=== PATIENT | female | born 1990 | race Caucasian/White ===

== ENCOUNTER 2018-01-18 12:48 | Observation (INO) | payer SELFPAY | END 2018-01-18 13:50 | disposition home or self-care (01) | PROVIDERS: Admitting Provider Family Medicine; Visit Provider Family Medicine | DX: Z34.93 Encounter for supervision of normal pregnancy, unspecified, third trimester (principal); Z3A.39 39 weeks gestation of pregnancy | CPT/HCPCS: 59025; G0378; G0379 ==

== ENCOUNTER 2018-01-20 04:11 | Inpatient (IN) | payer SELFPAY ==
--- NOTE | 2018-01-20 | DI.US.S_ITS ---
PROCEDURE: US RENAL COMPLETE INDICATIONS: BACK PAIN TECHNIQUE: Real-time scanning was performed of the kidneys and bladder, with image documentation. COMPARISON: None. FINDINGS: Kidneys: Kidneys are normal in size. Right kidney measures 10.9 cm long; left kidney measures 11.9 cm long. Right renal cortical thickness is 1.3 cm; left renal cortical thickness is 1.8 cm. Renal cortical echotexture is normal. 6 mm in diameter stone is noted in the proximal right ureter causing mild right-sided hydronephrosis. No suspicious solid mass lesions. Bladder: Urinary bladder was completely decompressed at time of imaging and cannot be evaluated. Miscellaneous: No free pelvic fluid. IMPRESSION: 6 mm proximal right ureteral stone causing mild right-sided hydronephrosis. Dictated by: Amy Tran MD, PhD on 01/20/2018 at 8:34 Approved by: Amy Tran MD, PhD on 01/20/2018 at 8:36
--- NOTE | 2018-01-20 | DI.US.S_ITS ---
PROCEDURE: US OB LIMITED INDICATIONS: BACK PAIN OUTSIDE/PRIOR DATING DATA: Last menstrual period (LMP): Not known. LMP-based estimated date of delivery (MELANIA): Not applicable. First dating scan (date and location): Not reported. Estimated date of delivery (MELANIA) from first dating scan: 01/23/18. TECHNIQUE: Real-time scanning was performed of the fetus, with image documentation. COMPARISON: None. FINDINGS: A single living intrauterine gestation is present. Presentation: Vertex Placenta: Placental position is superior right frontal, without previa. Amniotic fluid index: 12.8 cm, normal range is 5-24 cm. heart rate: 128 beats per minute. Estimated gestational age by report: 39 weeks 4 days. IMPRESSION: 1. Single living intrauterine with estimated gestational age by report of 39 weeks 4 days. 2. No evidence of placenta previa or placental abruption. Dictated by: Amy Tran MD, PhD on 01/20/2018 at 8:36 Approved by: Amy Tran MD, PhD on 01/20/2018 at 8:39
[2018-01-20 04:36] LABS: Bilirubin Urine UA NEGATIVE (NEGATIVE); Color Urine UA YELLOW; Glucose Urine UA NEGATIVE (Normal); Ketones Urine UA NEGATIVE (NEGATIVE); Leukocyte Esterase Urine UA 1+ (NEGATIVE); Nitrite Urine UA Negative (Negative); Occult Blood Urine UA 1+ (Negative); Protein Urine UA NEGATIVE (Negative); Urobilinogen Urine UA 0.2 E.U./dL (0.2)
[2018-01-20 04:41] LABS: Appearance Urine UA Slightly Cloudy
[2018-01-20 04:51] LABS: Bacteria Urine Many (>30); RBC Urine 1-5/HPF (0-5/HPF); Squamous Epithelial Cell Urine >30 /HPF; WBC Urine 1-5/HPF (0-5/HPF)
[2018-01-20 04:53] LABS: Culture Indicated Urine Cult Not Indicated
[2018-01-20 05:00] LABS: Add Manual Diff / Slide Review NO; Basophils Percent Auto 1.1 % (0-2); Eosinophils Percent Auto 0.8 % (2-4); Hematocrit 40.6 % (36-46); Hemoglobin 13.6 g/dL (12.0-16.0); Lymphocytes Percent Auto 36.5 % (25-40); Mean Corpuscular HGB Conc 33.4 % (30-36); Mean Corpuscular Hemoglobin 28.5 PG (26-34); Mean Corpuscular Volume 85.2 fL (80-100); Monocytes Percent Auto 4.6 % (3-14); Neutrophils Absolute Auto 8200 /uL (3000-5900); Platelet Count 293 X10^3/uL (150-400); Red Blood Cell Count 4.77 X10^6/uL (4.0-5.2); Red Cell Distribution Width 12.7 % (11.6-14.8); White Blood Cell Count 14.3 X10^3/uL (4.5-11.0)
[2018-01-20] MEDS: LACTATED RINGERS 1,000 ML 125 ML IV ×3 (05:21→21:11)
[2018-01-20] MEDS: OXYCODONE/ACETAMINOPHEN 5/325 TABLET 2 TAB PO ×2 (05:42→10:32)
[2018-01-20] MEDS: ONDANSETRON 4 MG/2 ML INJ IV ×3 (06:15→21:11)
[2018-01-20 06:45] LABS: Blood Urea Nitrogen 7 mg/dL (7-17); Carbon Dioxide 23 mmol/L (22-32); Chloride 105 mmol/L (98-107); Estimated Glomerular Filt Rate > 60.0 mL/min (>60); Glucose 91 mg/dL (70-100); HEMOLYSIS 32 (0-50); Sodium 137 mmol/L (137-145)
--- NOTE | 2018-01-20 08:49 | PM.OBHP.1 ---
OB HPI Date/Time Date of admission: 01/20/18 Date Patient Seen: 01/20/18 Time Patient Seen: 08:49 History of Present Condition Chief complaint: EVALUATION OF LABOR : 1 Para: 0 Estimated Date of Delivery: 01/23/18 Estimated Gestational Age (weeks): 39 5/7 Narrative: Noel Hoover is a 28 year old female with history of right-sided flank pain. Apparently recently seen here for hematuria and right-sided pain. Was felt to be secondary to possible early labor. Fetus is been good. No other significant changes. She has been having now leaking fluid or bleeding. Was having some contractions. Apparently yesterday she started having a little more right-sided flank pain which she thought maybe was just labor. Last night at 3:00 a.m. woke up with severe pain and was brought to the emergency room and labor and delivery. She was having some contractions. Her cervix is 2 cm. With no other significant change heart monitor was reactive category 1. No evidence of any leaking fluid. She otherwise was hemodynamically stable. Patient was given an ultrasound which showed a right-sided 7 mm kidney stone. She was given Percocet she did have 1 episode of vomiting but actually otherwise has been feeling quite a bit better since the pain medicine. Having intermittent contractions nothing significant. Apparently she is visiting friends lives in [place]. Did bring her records with her. No other significant change. labs show she is GBS negative. She had early care dates were from a 9 week ultrasound. Confirmed with an 18 week ultrasound. Genetic screening was negative. She has had an unremarkable otherwise. She believes she is O-positive or cheese and she is B-positive rubella immune SDS negative HIV nonreactive. G decisional screen was negative on the 20 of November. Hepatitis-C was negative hepatitis-B was negative no other significant changes. Patient has otherwise no major medical history. Medicine is vitamins and iron. She had been on iron for the start of the . Otherwise healthy. No major medical history. Family history is unremarkable. Allergies none. History of Present care: good care Dating criteria: LMP confirmed by 1st trimester US Ultrasounds: normal 1st trimester US and normal mid trimester US Medical complications: none Preadmission Labs Blood type: B (+) positive Prior (ies) History: None Evaluation Evaluation Laboratory results: Laboratory Tests 0901/20/18 01/20/18 04:20 04:40 06:20 WBC 14.3 H RBC 4.77 Hgb 13.6 Hct 40.6 MCV 85.2 MCH 28.5 MCHC 33.4 RDW 12.7 Plt Count 293 Neut % (Auto) 57.0 Lymph % (Auto) 36.5 Brooks % (Auto) 4.6 Eos % (Auto) 0.8 L Baso % (Auto) 1.1 Neut # (Auto) 8200 H Sodium 137 Potassium 4.0 Chloride 105 Carbon Dioxide 23 BUN 7 Creatinine 0.50 L Estimated GFR > 60.0 BUN/Creatinine Ratio 14.0 Glucose 91 Calcium 9.0 Urine Color Yellow Urine Appearance Slightly cloudy Urine pH 6.0 Ur Specific Mcfarlan 1.020 Urine Protein Negative Urine Glucose (UA) Negative Urine Ketones Negative Urine Occult Blood 1+ H Urine Nitrate Negative Urine Bilirubin Negative Urine Urobilinogen 0.2 Ur Leukocyte Esterase 1+ H Urine RBC 1-5/hpf Urine WBC 1-5/hpf Ur Squamous Epith Cells >30 /hpf H Urine Bacteria Many (>30) H Ur Culture Indicated? Cult not indicated Micro UA Comment * Meds Allergies Allergy/AdvReac Type Severity Reaction Status Date / Time No Known Drug Allergies Allergy Verified 01/20/18 05:28 Review of Systems Review of Systems All systems reviewed & are unremarkable except as noted in HPI and below Exam Narrative Exam Narrative: Alert gravid female in no acute distress resting comfortably. Lungs are clear. Heart regular rate and rhythm. Abdomen is soft positive bowel sounds gravid vertex by Marquis's. She does have some mild diffuse tenderness but nothing significant. No rebound guarding or other change. Flank shows tenderness on the right side. No left-sided tenderness. Extremities without cyanosis clubbing edema. Cervix is 2/70%/vertex/-1/intact Objective Labs Result Diagrams: 01/20/18 04:40 01/20/18 06:20 Labs: Laboratory Results - last 24 hr 01/20/18 01/20/18 01/20/18 04:20 04:40 06:20 WBC 14.3 H RBC 4.77 Hgb 13.6 Hct 40.6 MCV 85.2 MCH 28.5 MCHC 33.4 RDW 12.7 Plt Count 293 Neut % (Auto) 57.0 Lymph % (Auto) 36.5 Brooks % (Auto) 4.6 Eos % (Auto) 0.8 L Baso % (Auto) 1.1 Neut # (Auto) 8200 H Sodium 137 Potassium 4.0 Chloride 105 Carbon Dioxide 23 BUN 7 Creatinine 0.50 L Estimated GFR > 60.0 BUN/Creatinine Ratio 14.0 Glucose 91 Calcium 9.0 Urine Color Yellow Urine Appearance Slightly cloudy Urine pH 6.0 Ur Specific Mcfarlan 1.020 Urine Protein Negative Urine Glucose (UA) Negative Urine Ketones Negative Urine Occult Blood 1+ H Urine Nitrate Negative Urine Bilirubin Negative Urine Urobilinogen 0.2 Ur Leukocyte Esterase 1+ H Urine RBC 1-5/hpf Urine WBC 1-5/hpf Ur Squamous Epith Cells >30 /hpf H Urine Bacteria Many (>30) H Ur Culture Indicated? Cult not indicated Micro UA Comment * Assessment and Plan Plan: Plan: Problem 1. Thirty-nine and 5 since week intrauterine . heart monitor was reactive. She is having occasional contractions and probably has early stages of labor. We will have to see how things go over the next 2 hr. If she makes change then will prepare for vaginal delivery. If she does not we will send home and consider referral to her regular doctor. My recommendation is that if we do let him go home we should she should go straight home to [place]. I do not think she is probably in active labor but will see how things go. Problem 2. Kidney stone. Patient actually is well controlled with pain. Will need to be followed. We do not have a urologist here so things do not pass and she has increasing pain will need to refer to [place]. We discussed that it would be best if she goes home with her regular doctor and I assume they have urologist there. They feel like they do. She understands questions answered. Discussed with pharmacist. Is category B. She is really comfortable right now I think we are okay but may need to give Flomax depending on how things go. Discussed both with and her. They understand. Questions answered.
[2018-01-20 12:33] VITALS: BP 120/61
[2018-01-20] MEDS: MEPERIDINE 50 MG/ML 25 MG IV ×3 (12:51→18:30)
[2018-01-20] MEDS: OXYTOCIN PREMIX 30 UNIT/500 ML PLAST..BAG IV (13:10)
--- NOTE | 2018-01-20 13:26 | PM.OBPNLAB ---
Date/Time Date Patient Seen: 01/20/18 Time Patient Seen: 13:27 Pain Control Pain control: narcotic analgesia Comments: Patient with continued significant right-sided pain. Given Demerol and seemed to help quite a bit. No real contraction pain. Contractions Contraction pattern: Absent Status Monitor Accelerations: Present Monitor Decelerations: Absent Monitor Variability: Moderate Comments: Category 1 Assessment and Plan Assessment: induction ongoing Comments: Discussed with patient and . We discussed transfer to hospital with urologist. I discussed with anesthesia that epidural should cover her ureter pain also. We went through their questions about C-sections with tied recommend not doing at this time. Certainly heart monitor looks great and we have not tried if we could control her pain with an epidural and I think that would be okay although were not assured that kidney stone pain will be gone. We discussed all of this. Questions were answered. After discussion we elected for induction. I have discussed this with OBGYN who feels like that would be the best approach. Induction discussed. Questions answered. We will see about rupture and half an hour. No other changes. We will follow from here. Recheck and 0.5 hr.
--- NOTE | 2018-01-20 18:22 | PM.OBPNLAB ---
Date/Time Date Patient Seen: 01/20/18 Time Patient Seen: 18:22 Pain Control Pain control: tolerating well and narcotic analgesia Comments: Back pain seems controlled. Pelvic Exam Dilation (cm): 2 Effacement (%): 80 station: -1 Amniotic membrane status: Ruptured Comments: Ruptured with clear fluid Contractions Pitocin rate (mU/min): 9 Contraction pattern: Irregular Status status: Category l Assessment and Plan Assessment: induction ongoing Plan: continuous present management Comments: Problem 1. 395/7 week intrauterine ruptured with inadequate contraction pattern. Will continue Pitocin. Follow closely. Epidural when needed Problem 2. Kidney stone right side. Actually seems to be doing pretty well Demerol. Certainly will stop 4 cm due to risk and hope epidural well control pain. Will follow closely but seems to be doing well. Hopefully will pass it and not be an issue. Otherwise will need Urology outpatient evaluation
--- NOTE | 2018-01-21 02:23 | PM.OBPNLAB ---
Date/Time Date Patient Seen: 01/21/18 Time Patient Seen: 02:23 Pain Control Comments: Epidurals been turned down. Having pain was most contractions. Pelvic Exam Dilation (cm): 10 Effacement (%): 100 station: +1 Contractions Contractions on admission: regular Contraction pattern: Regular Contraction intensity: Moderate Status status: Category l Assessment and Plan Comments: Problem 1. Intrauterine . Complete. Pain control is not adequate will get epidural adjusted. Continue pushing. Patient fatigued but adequately pushing will continue. Prepare for vaginal delivery. Problem 2. Kidney stone. Seems to be stable at this time. Patient tolerating pain. Hopefully epidural will help. Toradol as
--- NOTE | 2018-01-21 04:59 | PM.OBPNLAB ---
Date/Time Date Patient Seen: 01/21/18 Time Patient Seen: 04:59 Pain Control Pain control: epidural Comments: Pain overall well controlled. No other changes. Pelvic Exam Dilation (cm): 10 Effacement (%): 100 station: +1 Amniotic membrane status: Ruptured Contractions Pitocin rate (mU/min): 0 Contraction pattern: Regular Contraction intensity: Moderate Status status: Category l Assessment and Plan Assessment: active labor Plan: continuous present management Comments: Post 2 and 0.5 hr. Vac applied x3 without improvement. Dr. Richardson came attempted forceps without success. Will convert urgent section. Infant has looked well. No distress or other changes. Discussed with family. Questions answered.
[2018-01-21] MEDS: CEFOTETAN 2 GM/50 ML PIGGYBACK IV (05:57)
--- NOTE | 2018-01-21 06:13 | SUR.OPER ---
Supine on Padded OR bed, head on pillow, safety belt at thigh, arms secured on padded arm boards at <90 degrees abduction. Bump under right buttock. Legs uncrossed with pillow under knees, gel pad to heels, tape over blanket to lower legs.
[2018-01-21] MEDS: LACTATED RINGERS 1,000 ML 125 ML IV (06:44)
[2018-01-21] MEDS: LIDOCAINE 1% 30 ML INJ INJ (06:56)
[2018-01-21 07:22] VITALS: BP 116/84; PULSE 107; RESP 18; TEMP 36.9; O2SAT 98
--- NOTE | 2018-01-21 07:27 | SUR.OPER ---
TOB live male at 0627. Cord blood x 2 and placenta to L&D with baby/OB Rn.
--- NOTE | 2018-01-21 07:28 | PM.OP.1 ---
Operative Date/Time/Diagnoses Date of procedure: 01/21/18 Time of procedure: 07:28 Pre-op diagnosis: 3957 week intrauterine with history of kidney stone with you to progress 2nd stage Post-op diagnosis: same Procedure & Clinicians Procedure: Primary low-transverse section Same procedure as scheduled: Yes Surgeon: Buddy Delaney Construction Area Manager: Randi Macias Anesthesia Type: Epidural Operative Notes Findings: Viable male weighing 8 lb 3 oz Apgars 8 and 9. Patient was occiput posterior and wedged pretty tightly in the pelvis. Normal pelvic organs. Closure Type: primary Specimen(s): none sent Implants & Drains: None Applied: catheter Estimated Blood Loss (mL): 400 Blood products transfused: none Procedure in detail: Patient was taken to the operative theater after consent was signed in epidural was dosed. She was placed on the supine wedge position and epidural was re-dosed with excellent results. Patient was prepped and draped in the usual manner Daugherty was already placed. Pfannenstiel incision was made with sharp dissection down to the muscle layer. Midline of the fascia was incised. Blunt dissection was used to extend the wound through the subcutaneous tissue. Scalpel was used to extend the fascia incision bilaterally. Copious were then used to elevate and blunt dissection was used to the elevate the superior aspect of the fascia midline was cut with curved mayos. This was repeated inferiorly without complications. Midline muscle layer was then bluntly entered until peritoneum was identified. Bluntly entered peritoneum under direct visualization and then extended bluntly will until adequate exposure. Bladder blade was placed. Bladder flap was then cut and bluntly developed and a bladder blade was placed and the bladder flap. A low transverse incision was then made on the uterus versus cord and then slowly until clear fluid was noted. It was extended bluntly. Child had been previously attempted to be pushed up out of the pelvis my fingers prior to procedure starting still was wedged pretty tightly below. She child shoulders were grasped and baby was pushed upward on as much as we can get. And then we elevated the head without complications. Child was occiput posterior. Child and delivered easily. Cord was clamped he was crying handed off to nursery. No resuscitation was required. Placenta was then delivered manually without complications uterine contents were then swept with a dry lap sponge. Uterine incision was then grasped corners with ring forceps along with inferior aspect of the uterine incision. There was a small tear vertically toward the vagina which was repaired with running 0 chromic locked. No evidence of bleeding. A 2nd imbricating 0 chromic suture was then done without complications on locked irrigation was done no bleeding was noted bladder flap was closed with running 3 0 Vicryl. Peritoneum was closed with running 2 0 Vicryl. Three 3 0 Vicryl interrupted sutures were used to approximate the muscle layer. Fascia was closed with running 1 Vicryl. 330 Vicryl interrupted sutures were used to close the subcutaneous tissue after irrigation. Incision was closed with running 4.0 Vicryl. Steri-Strips usual dressing was applied. All sponge and instrument and needle counts were correct. Complications: none Condition: stable Disposition: PACU
[2018-01-21 07:30] VITALS: BP 120/89; PULSE 101; RESP 17; O2SAT 98
[2018-01-21 07:35] VITALS: BP 116/84; PULSE 107; RESP 14; TEMP 36.9; O2SAT 100
[2018-01-21 07:41] VITALS: BP 130/78; PULSE 110; RESP 17; TEMP 37.1; O2SAT 97
[2018-01-21 07:50] VITALS: BP 118/76; PULSE 115; RESP 20; O2SAT 97
--- NOTE | 2018-01-21 07:52 | SUR.PHASEI ---
reports called to L&D, RN asked to hold patient for 10 minutes. Patient alert and oriented, reports 05/27. Shaky throughout but able to rest. Patient denies need for demerol, warm blanket or pain medications at this time. Vital signs stable, however remains ST 105-110. Anesthesia aware.
[2018-01-21] MEDS: DEXTROSE 5%-LACTATED RINGERS 1,000 ML 125 ML IV ×2 (08:20→17:09)
[2018-01-21] MEDS: ONDANSETRON 4 MG/2 ML INJ IV ×2 (09:28→13:04)
[2018-01-21] MEDS: KETOROLAC 30 MG/ML VIAL IV ×2 (12:59→19:15)
--- NOTE | 2018-01-21 18:16 | PM.PN.1 ---
Subjective Date Patient Seen: 01/21/18 Time Patient Seen: 18:16 Interval history: Feeling well. Pain is well controlled. No significant back pain. No bleeding no other change. Exam Vital Signs (past 8 hours): Oxygen Delivery Method Room Air Narrative Exam Narrative: Alert female no acute distress Objective Labs Result Diagrams: 01/20/18 04:40 01/20/18 06:20 Assessment & Plan Plan: Assessment/Plan Narrative: Status post for failure to progress actually doing quite well. She has been up moving around she will have her Daugherty pulled later and pain seems to be well controlled. Minimal bleeding. Routine care. Follow up a.m.. Kidney stone right side. Appears to be actually doing pretty well. I am going to hold on Flomax. Toradol seems to be covering is going to be hard to tell exactly with blood in her urine from surgery. We will have to see how things go if things worsen will need CT scan. They understand questions answered
[2018-01-22 01:59] VITALS: TEMP 37
[2018-01-22] MEDS: KETOROLAC 30 MG/ML VIAL IV ×3 (01:59→14:15)
--- NOTE | 2018-01-22 08:26 | PM.OBPN.1 ---
Subjective - OB Interval history: Mom is doing well . She is starting to have some pain left incisional. Her Duramorph is wearing off. She is only using Toradol for pain at this time. She is tolerating p.o. without difficulty. Her vaginal bleeding has decreased. Her catheter is out and she is urinating. She is passing flatus. She is not having any nausea or vomiting. is going very well. Baby is doing very well. Patient comments: pain well controlled [place] baby status: doing well [place] feeding status: exclusively breast feeding Date Patient Seen: 01/22/18 Time Patient Seen: 08:27 Exam Vital Signs (past 8 hours): - 01/22/18 01:59 Temperature 98.6 F Oxygen Delivery Method Room Air Narrative Exam Narrative: Afebrile, vital signs are stable Neck is supple Chest: Clear to auscultation Cor: Regular rate and rhythm without murmur Abdomen: Uterus is below the umbilicus and firm. Some incisional tenderness. Bandage in place and dry Extremities show trace ankle and pedal edema Objective Labs Result Diagrams: 01/20/18 04:40 01/20/18 06:20 Assessment & Plan Plan day: 2 plan OB: routine postop care Comments: Mom is doing well. Sacral dimple on baby but mom's MS AFP was negative. Routine care. Time Spent With Patient Total time spent is greater than 50% in coordination of care (as documented) at patient's floor/unit and/or counseling patient: 25 - 35 minutes
[2018-01-22] MEDS: DOCUSATE 250 MG CAPSULE PO (08:28)
--- NOTE | 2018-01-22 08:29 | P.PNOB_ITS ---
Subjective - OB Interval history: Mom is doing well . She is starting to have some pain left incisional. Her Duramorph is wearing off. She is only using Toradol for pain at this time. She is tolerating p.o. without difficulty. Her vaginal bleeding has decreased. Her catheter is out and she is urinating. She is passing flatus. She is not having any nausea or vomiting. is going very well. Baby is doing very well. Patient comments: pain well controlled Story baby status: doing well Story feeding status: exclusively breast feeding Date Patient Seen: 01/22/18 Time Patient Seen: 08:27 Exam Vital Signs (past 8 hours): - 01/22/18 01:59 Temperature 98.6 F Oxygen Delivery Method Room Air Narrative Exam Narrative: Afebrile, vital signs are stable Neck is supple Chest: Clear to auscultation Cor: Regular rate and rhythm without murmur Abdomen: Uterus is below the umbilicus and firm. Some incisional tenderness. Bandage in place and dry Extremities show trace ankle and pedal edema Objective Labs Result Diagrams: 01/20/18 04:40 01/20/18 06:20 Assessment & Plan Plan day: 2 plan OB: routine postop care Comments: Mom is doing well. Sacral dimple on baby but mom's MS AFP was negative. Routine care. Time Spent With Patient Total time spent is greater than 50% in coordination of care (as documented) at patient's floor/unit and/or counseling patient: 25 - 35 minutes
[2018-01-22] MEDS: OXYCODONE/ACETAMINOPHEN 5/325 TABLET 2 TAB PO ×4 (09:18→22:18)
[2018-01-22 09:25] LABS: Add Manual Diff / Slide Review NO; Basophils Percent Auto 4.4 % (0-2); Eosinophils Percent Auto 0.5 % (2-4); Hematocrit 32.9 % (36-46); Hemoglobin 11.2 g/dL (12.0-16.0); Mean Corpuscular HGB Conc 33.9 % (30-36); Mean Corpuscular Hemoglobin 28.8 PG (26-34); Monocytes Percent Auto 5.9 % (3-14); Neutrophils Absolute Auto 12700 /uL (3000-5900); Neutrophils Percent Auto 69.2 % (50-75); Platelet Count 206 X10^3/uL (150-400); Red Blood Cell Count 3.88 X10^6/uL (4.0-5.2); Red Cell Distribution Width 13.1 % (11.6-14.8); White Blood Cell Count 18.3 X10^3/uL (4.5-11.0)
[2018-01-22] MEDS: LANOLIN OINT 7 GM 1 APPLIC TOP (14:16)
[2018-01-22] MEDS: IBUPROFEN 600 MG TABLET PO (20:31)
[2018-01-23] MEDS: IBUPROFEN 600 MG TABLET PO ×2 (02:39→10:33)
[2018-01-23] MEDS: OXYCODONE/ACETAMINOPHEN 5/325 TABLET 2 TAB PO ×3 (02:40→10:31)
[2018-01-23 09:13] VITALS: BP 84/48; PULSE 88; RESP 20; TEMP 36.3
--- NOTE | 2018-01-23 10:26 | P.DS_ITS ---
History of Present Illness Chief complaint: labor & delivery Discharge Providers Date of admission: 01/20/18 04:11 Consults: 01/21/18 08:11 Consult to Hepatology Physician Routine Comment: Discharge provider: Ariel Murillo MD Discharge Date: 01/23/18 Summary Discharge Diagnosis: Term in active labor Failed labor section Kidney stone Hospital Course: Patient had been followed locally for care uneventful as far as I know. Lives in [facility] that shows to have care delivery year. See operative note for discussion of labor and delivery details. Postoperatively she has done well some pain but well managed with oral medications has chosen the nurse that has been a little bit full been managing okay. Also was found with a kidney stone that may be causing some back pain, not clear given the potential of back pain just with labor. Some pain at this time but on the other side of the back more so my sense is this is probably more related to recent delivery that a migrating stone. Has been up and around feeling pretty well no particular concerns. Some foot swelling. Exam Vital Signs (past 8 hours): Oxygen Delivery Method Room Air Narrative Exam Narrative: Healthy appearing no acute distress, up with baby. HEENT unremarkable chest is clear heart has a regular rate and rhythm without murmur abdomen is soft somewhat tender fundus just below the umbilicus dressing is in place no obvious saturation extremities with trace edema, normal reflexes. Objective Labs Result Diagrams: 01/22/18 Unknown 01/20/18 06:20 Discharge Plan Discharge Plan Patient Disposition: Home Discharge comment: To have postop care at their home and [facility]. Home with oral narcotics advised continued vitamins while nursing, and provided tamsulosin to use as needed should there be further evidence of kidney stone passage. Discharge Med Rec/Prescriptions Prescriptions: New oxycodone-acetaminophen 5-325 mg Tablet 2 tab PO Q4HR PRN (Reason: Pain, Moderate (4-6)) Qty: 30 RF: 0 tamsulosin 0.4 mg capsule 0.4 mg PO DAILY PRN (Reason: As needed for kidney stone) Qty: 14 RF: 0 Provider Discharge Instructions Diet: Diet as Tolerated Activity: As tolerated Skin/Wound/Dressing Care Report to your healthcare provider any signs of infection, such as:: chills, fever, night sweats, increased pain and unusual drainage Dressing: Change dressing daily Discharge Data Attending Provider: Buddy Delaney Admit Date/Time: 01/20/18 04:11
[2018-01-23] MEDS: DOCUSATE 250 MG CAPSULE PO (10:33)
== END 2018-01-23 12:25 | disposition home or self-care (01) | DRG 766 ==
PROVIDERS: Admitting Provider Family Medicine; Visit Provider Family Medicine
PROC: 10D00Z1 Extraction of Products of Conception, Low, Open Approach (ICD-10-PCS; CPT 59514; principal; 2018-01-21 06:00)
DX: O75.89 Other specified complications of labor and delivery (principal); Z3A.39 39 weeks gestation of pregnancy; Z37.0 Single live birth; N20.0 Calculus of kidney; O64.0XX0 Obstructed labor due to incomplete rotation of fetal head, not applicable or unspecified; O62.1 Secondary uterine inertia
CPT/HCPCS: 01967; 01968; 36415; 59050; 76770; 76815; 80048; 81001; 85025; 86850; 86900; 86901; G0379; J1885; J2175; J2274; J2405; J2590; J2765; J7121

== ENCOUNTER → 2021-08-20 15:38 | Outpatient (CLI) | payer SELFPAY ==
[2021-08-20 19:24] LABS: Urine N gonorrhoeae NOT DETECTED
[2021-08-20 19:40] LABS: Urine Chlamydia NOT DETECTED
== END ==
PROVIDERS: Visit Provider Obstetrics & Gynecology
DX: Z34.83 Encounter for supervision of other normal pregnancy, third trimester (principal); Z3A.38 38 weeks gestation of pregnancy
CPT/HCPCS: 87491; 87591

== ENCOUNTER → 2021-08-22 09:11 | Outpatient (CLI) | payer SELFPAY ==
[2021-08-22 11:06] LABS: COVID19 -Nasal RAPID Negative (Negative)
== END ==
PROVIDERS: Referring Provider Obstetrics & Gynecology; Visit Provider Obstetrics & Gynecology
DX: Z01.812 Encounter for preprocedural laboratory examination (principal); Z20.822 Contact with and (suspected) exposure to COVID-19
CPT/HCPCS: 87635

== ENCOUNTER 2021-08-23 05:46 | Inpatient (IN) | payer SELFPAY ==
--- NOTE | 2021-08-22 16:33 | PM.OBHP.1 ---
OB HPI Date/Time Date of admission: 08/23/21 Date Patient Seen: 08/23/21 History of Present Condition Chief complaint: REPEAT Narrative: Noel Merida is a 31 year old female [facility] Social History (System 08/22/21 @ 07:10 by Lady Chelsea Pryor) marital status: Smoking Status: Never smoker Meds Home Medications and Allergies Home Medications Medication Instructions Recorded Confirmed Type oxycodone-acetaminophen 5 mg-325 2 tab PO Q4HR PRN #30 tab 01/23/18 Rx mg tablet tamsulosin 0.4 mg capsule 0.4 mg PO DAILY PRN #14 cap 01/23/18 Rx Allergies Allergy/AdvReac Type Severity Reaction Status Date / Time No Known Drug Allergies Allergy Verified 08/22/21 07:10
[2021-08-23 06:33] LABS: Add Manual Diff / Slide Review NO; Basophils Absolute Auto 100 /uL (0-100); Basophils Percent Auto 0.6 % (0-2); Eosinophils Absolute Auto 100 /uL (0-450); Hemoglobin 13.1 g/dL (12.0-16.0); Lymphocytes Absolute Auto 3600 /uL (1100-4500); Lymphocytes Percent Auto 32.8 % (25-40); Mean Corpuscular HGB Conc 34.4 % (30-36); Mean Corpuscular Volume 84.4 fL (80-100); Monocytes Absolute Auto 600 /uL (0-900); Monocytes Percent Auto 5.6 % (3-14); Neutrophils Absolute Auto 6600 /uL (1500-7000); Platelet Count 288 X10^3/uL (150-400); Red Cell Distribution Width 12.5 % (11.6-14.8)
[2021-08-23] MEDS: LACTATED RINGERS 1,000 ML 100 ML IV ×2 (06:42→08:14)
[2021-08-23 06:59] VITALS: BP 131/76
--- NOTE | 2021-08-23 07:32 | PM.OBHP.1 ---
OB HPI Date/Time Date of admission: 08/23/21 Date Patient Seen: 08/23/21 Time Patient Seen: 07:32 History of Present Condition Chief complaint: REPEAT : 4 Para: 1 Estimated Date of Delivery: 08/27/21 Estimated Gestational Age (weeks): 39+3 Narrative: oNel Merida is a 31 year old , MELANIA 08/27/2021 admitted now at 39+ 3 weeks gestational age for repeat section. Patient received her care in [facility] and records accompany the patient at her initial visit on 08/21/2021. Patient's course has been uneventful, her GBS is negative, and her MELANIA is well established by first-trimester ultrasound and her LMP. Indications Operative indications ( section): previous uterine surgery History of Present care: good care Dating criteria: LMP confirmed by 1st trimester US Ultrasounds: normal 1st trimester US and normal mid trimester US Obstetrical complications: none Medical complications: none Preadmission Labs Blood type: B (+) positive -: Antibody screen: negative, GBS status: negative, HBsAG: negative and RPR/VDLR: negative -: Chlamydia screen: not detected and Gonorrhea screen: not detected -: Rubella: immune and Varicella: immune HCT: 39 HCAB: negative PAP: Normal Sequential screen: Negative Cell-free DNA: Negative, male infant Narrative: 1 hr. GDM screen negative Prior (ies) History: SAB x 2; Primary at [facility] 2018 Evaluation Evaluation Baseline heart rate: 150 Variability: Average (6-10) monitor accelerations: Present Monitor Decelerations: Absent Status: Category l [facility] Social History (System 08/22/21 @ 07:10 by Lady Chelsea Pryor) marital status: Smoking Status: Never smoker Meds Home Medications and Allergies Home Medications Medication Instructions Recorded Confirmed Type oxycodone-acetaminophen 5 mg-325 2 tab PO Q4HR PRN #30 tab 01/23/18 Rx mg tablet tamsulosin 0.4 mg capsule 0.4 mg PO DAILY PRN #14 cap 01/23/18 Rx Allergies Allergy/AdvReac Type Severity Reaction Status Date / Time phenol [From Chloraseptic] AdvReac Severe Blister Verified 08/23/21 07:45 OB Exam [facility] Head: normal to inspection, normocephalic and atraumatic Eyes General: appearance normal, both eyes and all related structures Resp Effort & Inspection: normal respiratory effort and able to speak in complete sentences Auscultation: clear to auscultation bilaterally Cardio Rate: regular rate Rhythm: regular rhythm Heart Sounds: S1 normal, S2 normal and no murmurs Extremities Lower extremity: Yes normal to inspection GI Inspection: incision (Well-healed Pfannenstiel incision) Palpation: Yes soft and Yes no hepatosplenomegaly External Female Exam: Yes other (Deferred) Uterus Location (Fundal Height): 38 Presentation: vertex Estimated Weight (lbs): 8 Objective Labs Result Diagrams: 08/23/21 06:15 Labs: Laboratory Results - last 24 hr 08/23/21 08/23/21 06:15 06:15 WBC 11.0 RBC 4.50 Hgb 13.1 Hct 38.0 MCV 84.4 MCH 29.0 MCHC 34.4 RDW 12.5 Plt Count 288 Neut % (Auto) 60.0 Lymph % (Auto) 32.8 [place] % (Auto) 5.6 Eos % (Auto) 1.0 L Baso % (Auto) 0.6 Neut # (Auto) 6600 Lymph # (Auto) 3600 [place] # (Auto) 600 Eos # (Auto) 100 Baso # (Auto) 100 Blood Type B Positive Antibody Screen Negative Assessment and Plan Assessment and Plan Assessment and Plan narrative: ASSESSMENT 1. INTRAUTERINE GESTATION, 39+ 3 WEEKS GESTATIONAL AGE, PRIOR SECTION PLAN 1. ADMITTED FOR REPEAT SECTION 2. SEE ORDERS
--- NOTE | 2021-08-23 07:55 | PM.PREOP ---
Pre-operative Note COVID-19 COVID-19 status: Negative Result date/Date tested (Pos, Neg/Pending): 08/23/21 Criteria for continued procedure: Non-surgical alternatives not available or appropriate per current SOC Interval Note History & Physical reviewed/Exam performed by Physician: Yes Changes to H&P: No
[2021-08-23] MEDS: CEFAZOLIN 2 GM/20 ML SYRINGE IV (08:00)
--- NOTE | 2021-08-23 08:18 | SUR.OPER ---
Patient reports previous reaction to skin prep from performed 01/21/2018. Dr. Leonard, anesthesia provider, reviewed operative notes from anesthesiologist and track watchman from first noting that chloraprep was used on both patient's back and abdomen. Chloraprep added to allergy list by Dr. Leonard. Dr. Nguyen notified. Betadine paint used for skin prep.
--- NOTE | 2021-08-23 08:32 | SUR.OPER ---
Viable baby boy delivered at 0823. Placenta delivered. Cord blood tubes x 2 and placenta given to L&D RN.
[2021-08-23 09:24] VITALS: BP 139/91; PULSE 88; RESP 16; TEMP 36.6; O2SAT 98
--- NOTE | 2021-08-23 09:26 | P.OP_ITS ---
Operative Date/Time/Diagnoses Date of procedure: 08/23/21 Time of procedure: 08:00 Pre-op diagnosis: Intrauterine gestation, Freire, vertex, 39+ 3 weeks gestational age Previous section Post-op diagnosis: same Procedure & Clinicians Procedure: Repeat section, ( transverse cervical) Same procedure as scheduled: Yes Surgeon: Esteban Nguyen Print Machine Operator: Chaparrita Acosta Reason for Print Machine Operator: Retraction, and the safe, timely, affective completion of this complex procedure. Anesthesia Type: Spinal Operative Notes Findings: Viable male infant, Apgars 8/9, BW 3789 gms. (8# 5.7 oz.), delivered without difficulty from the vertex presentation. Normal gravid anatomy Closure Type: primary Specimen(s): cord blood Intraoperative meds administered: Ketorolac and Pitocin Applied: Catheter Estimated Blood Loss (mL): 500 Blood products transfused: none Procedure in detail: With the patient under satisfactory spinal block anesthesia in the dorsal supine position, the abdomen was prepped and draped in the usual fashion for section following insertion of a Daugherty catheter.? A pre-surgical safety time-out was then taken in accordance with [facility] Main OR protocols.? A 14 cm transverse incision was then made and carried down to the deep fascia.? The deep fascia was incised transversely, the rectus abdomini bluntly, and the peritoneum was entered sharply.? A bladder flap was created with a transverse incision of the peritoneum overlying the lower uterine segment and the bladder advanced.? The lower uterine segment was then incised transversely and the amni otic cavity entered atraumatically.? Clear amniotic fluid was noted and the infant was delivered from vertex presentation without difficulty.? A shoulder cord was noted at the time of delivery and reduced following delivery of the infant.? Delayed cord clamping was performed and once the umbilical cord was clamped and cut, cord blood sample was obtained for routine studies.? The placenta was then removed from the endometrial cavity with uterine massage and gentle traction on the umbilical cord.? The endometrial cavity was found to be empty with use of a sloppy wet lap followed by dry lap.? All redundant membranes were removed and the endocervical canal dilated with a ring forcep.? Ring forceps were used to secure both angles and the hysterotomy was closed 1st with #1 Chromic in a running interlocking stitch initiated both angles and tying separately near the midline.? A 2nd layer of #1 Chromic was used in a running interlocking imbricating stitch to over sew the 1st.? 2 additional [id number] stitches of #1 Chromic were required to achieve complete hemostasis along the hysterotomy line. Following placement of those sutures, hemostasis was excellent with no points of bleeding noted in the pelvis.? The bladder flap was then closed with 2-0 Vicryl and the anterior peritoneum was closed in a similar fashion.? The rectus a dominant I were reapproximated with 3 #1 Chromic interrupteds. The deep fascia was then closed with #1 Vicryl in a running stitch initiated at both angles inciting separately near the midline.? Subcutaneous tissues brought together was 2-0 Vicryl in a running stitch and skin edges were reapproximated with 4-0 Monocryl in a running imbricating stitch.? Mastisol was applied to the skin and Steri-Strips then applied.? An AquaCel dressing was then applied over the Steri-Strips and the procedure was terminated with the doing well and the mother having tolerated the procedure well. Complications: none Post-operative Condition: stable Disposition: PACU Aftercare: routine postop
[2021-08-23 09:29] VITALS: BP 139/84; PULSE 84; RESP 18; O2SAT 95
[2021-08-23 09:34] VITALS: BP 130/85; PULSE 85; RESP 16; O2SAT 98
[2021-08-23 09:44] VITALS: BP 136/94; PULSE 75; RESP 16; TEMP 36.2; O2SAT 98
[2021-08-23 09:50] VITALS: BP 130/93; PULSE 79; RESP 16; TEMP 36.4; O2SAT 98
[2021-08-23] MEDS: ACETAMINOPHEN 325 MG TABLET 650 MG PO ×2 (12:55→18:49)
[2021-08-23] MEDS: IBUPROFEN 600 MG TABLET PO ×2 (17:05→23:20)
[2021-08-24] MEDS: ACETAMINOPHEN 325 MG TABLET 650 MG PO ×3 (00:30→19:24)
[2021-08-24] MEDS: IBUPROFEN 600 MG TABLET PO ×3 (05:10→17:15)
[2021-08-24 06:15] LABS: Hematocrit 35.3 % (36-46)
[2021-08-24 07:00] VITALS: BP 112/77; PULSE 83; RESP 16; TEMP 36.7
[2021-08-24] MEDS: OXYCODONE IR 10 MG TABLET PO (07:30)
--- NOTE | 2021-08-24 11:40 | PM.OBPN.1 ---
Subjective - OB Subjective Patient comments: no complaints and incisional pain [place] baby status: doing well feeding status: exclusively breast feeding Date Patient Seen: 08/24/21 Interval history: Patient is doing well and has been ambulating independently overnight. She denies nausea and vomiting. + flatus. Pain is reasonably well controlled after addition of oxycodone to Tylenol and ibuprofen. Exam Vital Signs (past 8 hours): Oxygen Delivery Method Room Air Const General: cooperative and comfortable Nutritional Appearance: average body habitus Orientation: alert and oriented x3 HENMT Head: normal to inspection, atraumatic and abrasion Ears: hearing grossly normal bilaterally Face and sinus: face symmetric Eyes General: appearance normal, both eyes and all related structures Conjunctivae: conjunctivae normal Sclera: sclerae normal EOM: EOM intact bilaterally Neck Neck: normal visual inspection Resp Effort & Inspection: normal respiratory effort and able to speak in complete sentences Auscultation: clear to auscultation bilaterally Cardio Rate: regular rate Rhythm: regular rhythm Heart Sounds: S1 normal, S2 normal and no murmurs GI Inspection: normal to inspection and incision (Dressing stained slightly, unchanged) Palpation: soft, no hepatosplenomegaly, mass (Firm, mildly tender fundus @ U-3) and tender (Moderate BLQ) Auscultation: hypoactive bowel sounds General: other (Deferred) Objective Labs Result Diagrams: 08/24/21 06:00 Labs: Laboratory Results - last 24 hr 08/24/21 06:00 Hgb 12.0 Hct 35.3 L Assessment & Plan Plan day: 1 plan OB: routine postop care Time Spent With Patient Time: Total time spent is greater than 50% in coordination of care (as documented) at patient's floor/unit and/or counseling patient: Time with patient: 15-24 minutes
[2021-08-24 16:00] VITALS: BP 112/77; PULSE 83; RESP 16; TEMP 36.6
[2021-08-24 17:15] VITALS: TEMP 36.7
[2021-08-24] MEDS: ONDANSETRON 4 MG ODT SL (19:24)
[2021-08-25] MEDS: IBUPROFEN 600 MG TABLET PO ×3 (00:05→13:04)
[2021-08-25] MEDS: OXYCODONE IR 10 MG TABLET PO ×2 (00:05→08:42)
[2021-08-25] MEDS: ACETAMINOPHEN 325 MG TABLET 650 MG PO ×2 (03:15→09:16)
[2021-08-25] MEDS: DOCUSATE 100 MG CAPSULE 200 MG PO (09:55)
--- NOTE | 2021-08-25 10:21 | P.DS_ITS ---
Discharge Providers Provider Date of admission: 08/23/21 05:46 Discharge Date: 08/25/21 Primary care physician: Esteban Nguyen MD Consults: 08/23/21 09:45 Consult to Care Worker Routine Comment: Discharge provider: Esteban Nguyen MD Summary Hospital Course Date Patient Seen: 08/25/21 Time Patient Seen: 10:34 Diagnoses: Intrauterine gestation, Freire, 39+ 3 weeks gestational age Prior section Hospital Course: On the morning of 08/23/2021, the patient was admitted to the [facility] and underwent an uneventful repeat section (low transverse cervical) with delivery of viable male infant, Apgars 8/9, weight 3789 g (8 lb 5.7 oz). Details of the procedure well summarized on my operative note of that date. Following surgery the patient has done extremely well with prompt return of bladder function, she is passing gas, ambulating well independently, tolerating a regular diet, and her pain is well controlled with oral pain medication. First morning postop hemoglobin and hematocrit were 12.0 and 35.3 respectively with preop hemoglobin/hematocrit of 13.1/38.0. She has remained a febrile and normotensive throughout her postoperative course and is discharged at this time in an afebrile normotensive condition to home with medications to include oxycodone 10 mg 1 tab p.o. Q 8-12 hours as needed pain, 14. In addition the patient will use [id number] ibuprofen, Tylenol, and stool softeners as needed. At the time of discharge patient is undecided regarding how she wishes to have follow-up since she is considering returning to [place] in the next couple of days. If she remains here in the [place] follow-up in my office will be arranged for 1 week following surgery. If the patient is in [place] she plans to return to her mechatronics technician for postoperative evaluation and 7-10 days. Prior to discharge the patient was counseled regarding precautionary symptoms, limitations of activity, medications, and plans for follow-up. In addition she received written instructions for postoperative care and has contact information for any concerns, problems, or issues which arise. Her surgical dressing was changed on the day of discharge with instructions for dressing change and supp lies provided. Peripartum Data Delivery Method: Section Procedures: Repeat section (low transverse cervical) complications: none [place] 1: Gender: Male Disposition of : home Status at Discharge Cognitive/behavioral status at discharge: at baseline, oriented Overall status at discharge: patient is progressing back to baseline Time Spent with Patient Time attestation: Total time spent providing and/or coordinating discharge services: Time spent: Less than 30 minutes Objective Labs Result Diagrams: 08/24/21 06:00 Exam Vital Signs (past 8 hours): Oxygen Delivery Method Room Air T: 97.4 P: 87 R: 16 BP: 112/77 O2SAT: 100% Const General: cooperative and comfortable Nutritional Appearance: average body habitus Orientation: alert and oriented x3 HENMT Head: normal to inspection, normocephalic and atraumatic Face and sinus: face symmetric Eyes General: appearance normal, both eyes and all related structures Conjunctivae: conjunctivae normal Sclera: sclerae normal EOM: EOM intact bilaterally Neck Neck: normal visual inspection Resp Effort & Inspection: normal respiratory effort and able to speak in complete sentences Auscultation: clear to auscultation bilaterally Cardio Rate: regular rate Rhythm: regular rhythm Heart Sounds: S1 normal, S2 normal and no murmurs GI Inspection: normal to inspection, distended (Mild) and incision (Intact, clean and dry, dressing removed and replaced) Palpation: soft, no hepatosplenomegaly, mass (U-5, mildly tender) and tender ( Diffuse mild BLQ tenderness) General: other (Deferred) Psych Appearance: grossly normal Mental Status: mental status grossly normal Speech and Movement: speech and movement normal Mood: congruent mood Affect: normal affect Attitude: cooperative Thought Process: normal Thought Content: normal Judgment: judgment good Discharge Plan Discharge Plan Patient Disposition: Home Provider Discharge Comment: Please review the written instructions you received when you were released from the hospital. Typically I see hour post op C-sect ion patient's back 1 week following their surgery and will be happy to do so for you next Thursday but if you go back to [place] as planned, be sure to see somebody within the next 7-10 days simply to take a look at your incision. If you have any questions or concerns in the meantime, my personal cell is [phone]. Please keep me posted as to how you are doing. Discharge orders & Medications Prescriptions: New oxycodone 10 mg Tablet 10 mg PO Q8H PRN (Reason: Pain, Severe (7-10)) 5 Days Qty: 10 0RF Discontinued oxycodone-acetaminophen 5-325 mg Tablet 2 tab PO Q4HR PRN (Reason: Pain, Moderate (4-6)) Qty: 30 0RF tamsulosin 0.4 mg capsule 0.4 mg PO DAILY PRN (Reason: As needed for kidney stone) Qty: 14 0RF Follow up/Referrals: Esteban Nguyen MD [Primary Care Provider] - (Appointment with ; please make an appointment to see him in one week for dressing removal.) Discharge Health Status Multidrug resistant organism: No MDRO Diet/Activity/Treatments Diet: Diet as Tolerated Activity: As tolerated. Other treatments: Over the counter Tylenol (do NOT exceed 4000 mg daily) and ibuprofen (600 mg 3 or 4 times daily) as needed. Over the counter stool softeners twice daily may help prevent/reduce constipation. Skin/Wound/Dressing Care Report to your healthcare provider any signs of infection, such as:: chills, fever, increased pain, unusual drainage and unusual redness Dressing: Dressing changed 08/25. Remove and placed new dressing 08/27. Remove dressing 08/29 then leave open to air with only a loose protective covering until covering is no longer needed. Visit Report/Discharge Packet Instructions: DI for , DI for and Nipple Soreness, DI for Prescription Opioid Use Discharge Data Primary Care Provider: Esteban Nguyen
== END 2021-08-25 14:10 | disposition home or self-care (01) | DRG 788 ==
PROVIDERS: Admitting Provider Obstetrics & Gynecology; PCP Obstetrics & Gynecology; Referring Provider Obstetrics & Gynecology; Visit Provider Obstetrics & Gynecology
PROC: 10D00Z1 Extraction of Products of Conception, Low, Open Approach (ICD-10-PCS; CPT 59514; principal; 2021-08-23 07:45)
DX: O34.211 Maternal care for low transverse scar from previous cesarean delivery (principal); Z3A.39 39 weeks gestation of pregnancy; Z37.0 Single live birth
CPT/HCPCS: 36415; 59050; 59514; 59515; 85014; 85018; 85025; 86850; 86900; 86901; J0690; J1100; J1885; J2274; J2405; J2590